=== PATIENT | male | born 1990 | race Caucasian/White ===

== ENCOUNTER 2021-02-24 06:09 | Emergency (ER) | payer OTHER ==
[2021-02-24] MEDS ORDERED: TORADOL 10 MG T10 MG PO (10:07)
[2021-02-24] MEDS ORDERED: MEDROL DOSEPAK 24 MG PO (10:07)
[2021-02-24] MEDS ORDERED: BACLOFEN10 MG PO (10:07)
== END 2021-02-24 11:00 | disposition home or self-care (01) ==
LOC: ER1 06:09
DX: M51.36 Other intervertebral disc degeneration, lumbar region (principal)
CPT/HCPCS: 72131; 96372; 99283; J1100; J1885; J2360